=== PATIENT | female | born 1995 | race African-American/Black ===

== ENCOUNTER 2024-01-17 16:23 | Emergency (ER) | payer MEDICAID, SELFPAY ==
[2024-01-17 16:24] VITALS: BP 142/128; PULSE 84; RESP 16; TEMP 36.4; O2SAT 99; BMI 20.5
--- NOTE | 2024-01-17 16:44 | CT_ITS ---
STUDY: CT THORACIC SPINE WITH AND WITHOUT CONTRAST REASON FOR EXAM: Female, 28 years old. painful bump x2 in thoracic spine TECHNIQUE: The patient was scanned in a multi-detector CT scanner. High resolution transaxial imaging was performed pre-and post contrast administration. The examination was performed with IV 70mL Isovue-370. Images were obtained from to . Sagittal and coronal images were reconstructed. Individualized dose optimization techniques were used for this CT. COMPARISON: None. FINDINGS: Normal visualized cervical spine. Normal kyphosis of the thoracic spine. There is no substantial scoliosis. Normal thoracic vertebrae and endplates. Normal disc spaces heights. In the visualized lung moreno, there is an incompletely visualized infiltrate in the posterior segment of the left upper lobe. Small infiltrates are seen in the right upper lobe and the center of the right lower lobe. CT of the chest recommended. CT/Spine Thoracic WITH Contrast IMPRESSION: Normal enhanced and unenhanced CT examination of the thoracic spine. Bilateral pulmonary infiltrates. CT of the chest recommended. Electronically Signed: Levi Camacho MD at 18:56 EDT ,
--- NOTE | 2024-01-17 16:44 | CT_ITS ---
STUDY: CT LUMBAR SPINE WITH CONTRAST REASON FOR EXAM: Female, 28 years old. painful lump upper lumbar spine RADIATION DOSAGE (If Supplied By Facility): CTDIvol = ( 15.20 ) mGy, DLP = ( 469.72 ) mGycm TECHNIQUE: The patient was scanned in a multi detector CT scanner. High resolution transaxial imaging was performed following the intravenous administration of IV 70mL Isovue-370. Images were obtained from to . Sagittal and coronal images were reconstructed. Individualized dose optimization techniques were used for this CT. COMPARISON: None FINDINGS: Normal lumbar lordosis. There is no substantial scoliosis. Normal vertebrae of the lumbar spine. L1-2: Normal endplates. Normal disc height and morphology. Normal bilateral facet joints. Normal central canal and bilateral lateral recesses. Normal bilateral intervertebral neural foramina. L2-3: Normal endplates. Normal disc height and morphology. Normal bilateral facet joints. Normal central canal and bilateral lateral recesses. Normal bilateral intervertebral neural foramina. L3-4: Normal endplates. Normal disc height and morphology. Normal bilateral facet joints. Normal central canal and bilateral lateral recesses. Normal bilateral intervertebral neural foramina. L4-5: Normal endplates. Normal disc height and morphology. Normal bilateral facet joints. Normal central canal and bilateral lateral recesses. Normal bilateral intervertebral neural foramina. L5-S1: Normal endplates. Normal disc height and morphology. Normal bilateral facet joints. Normal central canal and bilateral lateral recesses. Normal bilateral intervertebral neural foramina. Normal visualized paraspinous soft tissue structures. CT/Spine Lumbar WITH Contrast IMPRESSION: Normal enhanced CT examination of the lumbar spine. Electronically Signed: Levi Camacho MD at 18:52 EDT ,
--- NOTE | 2024-01-17 17:03 | EDS_ITS ---
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 Patient states that they have been there approximately a month now however notes that they are tender to palpation now. She states that she called her primary care physician and they states that they could get her in tomorrow however she states that she did not want to wait any longer and came here further evaluation management today. Patient denies any history of IV drug use, smoking, alcohol use. Patient states that she has been urinating her for her normal self and has not had any difficulty with her bowel movements. Patient denies any fevers. Patient trauma or injuries. [facility] Medical History (Updated 01/17/24 @ 21:[address] Frank Martinez, DO) delivery delivered Kidney disease Home Medications ?Medication ?Instructions ?Recorded ?Last Taken ?Type doxycycline hyclate 100 mg capsule 100 mg PO BID 7 days #14 caps 01/17/24 Unknown Rx Allergy/AdvReac Type Severity Reaction Status Date / Time No Known Allergies Allergy Verified 01/17/24 16:24 ROS ROS ED ROS Narrative Constitutional: Denies fevers, chills, headaches, Toro, dizziness Eyes: Denies change in vision double vision blurry vision Cardiovascular: Denies chest pain Respiratory: Denies cough or wheezing shortness of breath Abdomen: Denies abdominal pain nausea vomit diarrhea Neurological: Denies numbness, weakness, tingling Musculoskeletal: Complains of lumps in the back as noted above Skin: Denies any other rashes or lesions seen musculoskeletal EXAM Physical Exam Narrative Exam Narrative: general: Patient lying in bed rest comfortably did not appear to be in acute distress Head: Atraumatic, normocephalic Eyes: Pupils equal round reactive to light bilaterally, extraocular muscles intact bilaterally, no conjunctival injection noted Neck: Soft, supple, trachea midline Cardiovascular: Regular rate and rhythm no murmurs gallops rubs noted Respiratory: Clear to auscultation bilaterally no rales rhonchi or wheeze noted Abdomen: Soft, nondistended, nontender to palpation, bowel sounds present for Musculoskeletal: No midline tenderness to palpation of midline thoracic or lumbar spine patient does have 2 mobile masses noted in her thoracic spine laterally to the spine itself. No erythema or skin changes Extremities: +5/5 strength noted in the bilateral upper and lower extremities, no pedal edema on exam, radial pulses +2/4 in bilateral extremities Neurological: Patient following commands knew that she was at [facility] and the year is 2023 sensation grossly intact when compared bilaterally throughout her body Skin: Warm, dry, see musculoskeletal Const Vital Signs: 01/17/24 16:24 01/17/24 20:24 Temperature 97.6 F L Temperature Source Temporal Pulse Rate 84 84 Respiratory Rate 16 16 Blood Pressure 142/128 H 128/81 H Blood Pressure Mean 132 96 Pulse Ox 99 99 Oxygen Delivery Method Room Air Room Air MDM MDM MDM Narrative Medical decision making narrative: Patient is a 28-year-old female who presented to the emerged part with chief complaint of lumps in her back as noted HPI patient will have a workup performed here on the differential diagnose includes but not limited to lipomas, compression fractures, tumor. Once workup is obtained reviewed she will be reevaluated. Patient BMP reviewed and showed sodium 139, potassium 3.7, creatinine normal at 0.99. Patient's urinalysis did not reveal any evidence of infection test was negative. Patient CT of her lumbar spine was reviewed and showed normal enhancement CT of the lumbar spine. Patient CT thoracic spine reviewed and showed normal CT thoracic spine with bilateral pulmonary infiltrates recommending CT of the chest which was added on and reviewed and notes that she has confirmational widespread bilateral pulmonary filtrates consistent with multifocal pneumonia. Reevaluation the patient once again she states that she is had a cough every now and then but nothing consistent and has not coughed anything up she is not any fevers does not feel sick at all. She states that she does vape a lot. Given the CT findings we will give her a dose of Rocephin and azithromycin here and place her on doxycycline at home. She was encouraged to discontinue vaping and follow-up with her primary care physician in the outpatient setting. Patient was encouraged to follow-up with dermatology for these bumps in her back. She is agreeable this plan she would like to go home at this point time she was discharged home in stable condition. She was encouraged return with worsening symptoms or other concerns. Lab Data Labs: Laboratory Results - last 24 hr 01/17/24 01/17/24 17:05 17:31 Sodium 139 Potassium 3.7 Chloride 108 H Carbon Dioxide 26.0 Anion Gap 5 BUN 17 Creatinine 0.99 Estim Creat Clear Calc 76.25 Est GFR (MDRD) Af Amer 85 Est GFR (MDRD) Non-Af 70 BUN/Creatinine Ratio 17.2 Glucose 99 Calcium 8.7 Urine Color Yellow Urine Clarity Clear Urine pH 6.5 Ur Specific [place] 1.015 Urine Protein 30 H Urine Glucose (UA) Normal Urine Ketones 5 H Urine Occult Blood Negative Urine Nitrite Negative Urine Bilirubin Negative Urine Urobilinogen 1 H Ur Leukocyte Esterase 25 H Urine RBC 0 SEEN Urine WBC 0-5 SEEN Ur Squamous Epith Cells 0-5 SEEN Urine Bacteria RARE Urine Mucus 0 SEEN Urine Test Negative Radiography Diagnostic Testing: Clinical Impression(s) from Imaging Studies Lumbar Spine CT 01/17/24 16:44 IMPRESSION: Normal enhanced CT examination of the lumbar spine. Electronically Signed: Levi Camacho MD at 18:52 EDT Reading Location ID and State: [facility] / [place] , Service support , Thoracic Spine CT 01/17/24 16:44 IMPRESSION: Normal enhanced and unenhanced CT examination of the thoracic spine. Bilateral pulmonary infiltrates. CT of the chest recommended. Electronically Signed: Levi Camacho MD at 18:56 EDT Reading Location ID and State: [facility] / [place] , Service support , Chest CT 01/17/24 20:11 IMPRESSION: Confirmation of widespread bilateral pulmonary infiltrates consistent with multifocal pneumonia. Electronically Signed: Levi Camacho MD at 21:00 EDT Reading Location ID and State: [facility] / [place] , Service support , Discharge Plan Triage Chief Complaint: Back ED Provider: Frank Martinez Dx/Rx/DC Orders Clinical Impression: Pneumonia Prescriptions: New doxycycline hyclate 100 mg capsule 100 mg PO BID 7 Days Qty: 14 0RF Primary Care Provider: Santiago Polanco Referrals: Santiago Polanco MD [Primary Care Provider] - Susan Montoya MD [Non-Staff] - Activity Restrictions/Additional Instructions: Follow-up with your primary care physician in outpatient setting. Follow-up with dermatology. Return for worsening symptoms or any concerns. Take antibiotics as prescribed. Discontinue vaping. Print Language: Icelandic Disposition Disposition: Home, Self Care
[2024-01-17] MEDS: 0.9% Normal Saline (1000mL) 1,000 ML 999 ML IV (17:04)
[2024-01-17 17:27] LABS: Anion Gap 5 (5-15); BUN 17 mg/dL (7-18); BUN/Creat Ratio 17.2 RATIO (10-20); Calcium,Total 8.7 mg/dL (8.5-10.1); Chloride 108 mmol/L (98-107); Creatinine, Serum 0.99 mg/dL (0.55-1.02); EST Glomerular Filtration Rate 70 mL/min (>60); Est Glom Filt Rate - Afr Amer 85 mL/min (>60); Estimated Creatinine Clearance 76.25 ml/min; Glucose 99 mg/dL (74-106); Potassium 3.7 mmol/L (3.5-5.1); Sodium Level 139 mmol/L (136-145)
[2024-01-17 17:38] LABS: Mucous, Urine 0 SEEN /hpf (<or=2+); Red Blood Cells-Urine 0 SEEN /hpf (0-5)
[2024-01-17 17:55] LABS: Color, Urine Yellow (Yellow); Glucose, Dipstick Normal (Normal); Ketone-Dipstick 5 mg/dl (Negative); Leukocyte Esterase-Dipstick 25 /ul (Negative); Nitrite-Dipstick Negative (Negative); Occult Blood-Urine Negative /ul (Negative); Protein-Dipstick 30 mg/dl (Negative); Specific Gravity, Urine 1.015 (1.002-1.030); Urine Bilirubin Dipstick Negative (Negative); Urine Clarity Clear (Clear); Urine Urobilinogen 1 mg/dl (Normal); Urine pH 6.5 (5.0 - 8.0)
[2024-01-17 18:02] LABS: Bacteria RARE /hpf (None Seen); Squamous Epithelial Cells - UA 0-5 SEEN /hpf (5-10); White Blood Cells 0-5 SEEN /hpf (0-5)
[2024-01-17 18:03] LABS: Internal QC Validated? YES +Cl - CLEAR BKGD; Pregnancy, Urine Negative Negative
--- NOTE | 2024-01-17 20:11 | CT_ITS ---
INDICATION: recommended for infiltares EXAMINATION: CT CHEST WITHOUT CONTRAST - CT Chest W/O Contrast Injection TECHNIQUE: Helically acquired images were obtained of the chest. A radiation dose optimization technique was used for this scan. IV Contrast dosage and agent: None. COMPARISON: None. FINDINGS: LUNGS, PLEURA AND LARGE AIRWAYS: Confirmation of infiltrates in the posterior segment of the left upper lobe, anterior segment of the left upper lobe, in the right apex, and in the center of the right lung. These appear to be inflammatory infiltrates. Several 5 or 6 mm nodules are scattered in the right lung. In this age group, findings are most consistent with inflammatory disease. No pleural effusion or thickening. No pneumothorax. THYROID: No thyroid lesions. HEART AND PERICARDIUM: Heart size is normal. No pericardial effusion. CORONARY ARTERIES: Coronary artery calcification is not seen. VESSELS: Thoracic aorta is not dilated. MEDIASTINUM AND MORRO: Although no gross mediastinal or hilar mass or adenopathy is seen, adenopathy is difficult to exclude without IV contrast was not given. Esophagus is unremarkable. No hiatal hernia. UPPER ABDOMEN: No acute pathology. BONES: No suspicious lytic or blastic abnormality. CT/Chest without Contrast IMPRESSION: Confirmation of widespread bilateral pulmonary infiltrates consistent with multifocal pneumonia. Electronically Signed: Levi Camacho MD at 21:00 EDT ,
[2024-01-17 20:24] VITALS: BP 128/81; PULSE 84; RESP 16; O2SAT 99
[2024-01-17] MEDS: Ceftriaxone 1 GM/50 ML BAG IV (21:33)
[2024-01-17 22:01] VITALS: BP 120/69; PULSE 81; RESP 16; O2SAT 99
[2024-01-17] MEDS: Azithromycin 500 MG in Dextrose 5%-Water (250mL Bag) 250 ML 250 MG IV (22:14)
== END 2024-01-17 23:26 | disposition home or self-care (01) ==
PROVIDERS: Emergency Provider Emergency Medicine; Visit Provider Emergency Medicine
DX: J18.9 Pneumonia, unspecified organism (principal); R22.2 Localized swelling, mass and lump, trunk; Z90.5 Acquired absence of kidney; F17.290 Nicotine dependence, other tobacco product, uncomplicated
CPT/HCPCS: 71250; 72129; 72132; 80048; 81001; 81025; 96361; 96365; 96375; 99283; J7030; J7040; Q9967